=== PATIENT | female | born 1985 | race African-American/Black ===

== ENCOUNTER 2017-01-29 16:31 | Emergency (ER) | payer SELFPAY ==
[~2017-01-29] VITALS: Ht 157.5 cm; Wt 57.6 kg
--- NOTE | 2017-01-29 16:56 | NUR ---
pt refused to submit information about her home medication. dr Law notified.
[2017-01-29] MEDS: ONDANSETRON ODT 4 MG TAB.RAPDIS SL ONE (17:43)
[2017-01-29] MEDS: HYDROMORPHONE 1 MG/1 ML DISP.SYRIN IM ONE (17:43)
[2017-01-29] MEDS: diphenhydrAMINE 50 MG/1 ML VIAL IM ONE (17:48)
[2017-01-29] MEDS ORDERED: diphenhydrAMINE 50 MG/1 ML VIAL ONE (17:49)
[2017-01-29] MEDS ORDERED: ONDANSETRON ODT 4 MG TAB.RAPDIS ONE (17:49)
[2017-01-29] MEDS ORDERED: HYDROMORPHONE 2 MG/1 ML DISP.SYRIN ONE (17:50)
--- NOTE | 2017-01-29 18:58 | NUR ---
Patient discharged to home in stable conditon. Written and verbal after care instructions given. Patient verbalizes understanding of instructions.PT WALKS IN STEADY GAIT. PT NOT DRIVING
[2017-01-29 19:00] VITALS: BP 111/75
[2017-01-31 13:25] LABS: *HEMOGLOBIN SOLUBILITY Negative (Negative)
== END 2017-01-29 19:01 | disposition home or self-care (01) ==
LOC: ER 16:45
DX: F11.23 Opioid dependence with withdrawal (principal); D57.1 Sickle-cell disease without crisis; G89.29 Other chronic pain; J45.909 Unspecified asthma, uncomplicated; Z88.6 Allergy status to analgesic agent; Z88.8 Allergy status to other drugs, medicaments and biological substances
CPT/HCPCS: 36415; 83021; 85660; 96372 ×2; 99284; A4663; J1170; J1200; Q0162